=== PATIENT | female | born 1960 | race Caucasian/White ===

== ENCOUNTER → 2016-10-20 | Outpatient (CLI) | payer BC ==
[~2016-10-20] MED LIST: ALPR0.5T72 PO; ALPR1TAB7 PO; CYCL10TA9 PO; D50KC PO; ESCT10T PO; FLUC150T PO; FURO-125 PO; HYDR25CA PO; LISI10TA2 PO; MTF500T PO; Metformin Hcl PO; OXYC-202 PO; POTA10TA10 PO; ZOLP5TAB PO
--- OUTSIDE RECORDS SUMMARY | 2016-10-20 13:51 | XMS REPORT | Continuity of Care Document ---
Author Author [facility] Organization [facility] Address Unknown Phone Unavailable Care Team Providers Care Scarfing Machine Operator Name Role Phone YVETTE LOVE DO PCP Insurance Providers Payer Name Policy Number Subscriber Name Relationship [facility] [id number] Earle Acosta 01 Advance Directives Directive Response Recorded Date/Time Advance Directives No 03/11/10 11:00am Organ Donor Yes 03/11/10 11:00am Problems No known problems or medical conditions. Medications Medication Dose Route Sig Days/Qty Instructions Order Date Discontinued Date Status Metformin HCl (Glucophage) 1 Each PO TWICE A DAY 03/04/10 Active Alprazolam 1 Mg PO DAILY 03/04/10 Active Ergocalciferol 50,000 Unit PO WEEKLY 03/04/10 Active Escitalopram Oxalate 1 Each PO DAILY 03/04/10 Active Social History No social history. Hospital Discharge Instructions No hospital discharge instructions. Plan of Care No plan of care. Functional Status No functional status results. Allergies, Adverse Reactions, Alerts No known allergies. Immunizations No immunization records. Vital Signs No known vital signs results. Results No known relevant diagnostic tests, laboratory data and/or discharge summary. Procedures No known history of procedures. Encounters Encounter Location Date/Time Registered Clinic Via [facility] 02/25/15 8:00pm
--- NOTE | 2016-10-21 11:37 | Diagnostic Imaging Report ---
EXAM: Bilateral screening mammogram COMPARISON: The current study was also evaluated with a Computer Aided Detection (CAD) system. INDICATION: Screening. No current complaints stated on the questionnaire. COMPARISON: 09/03/2015. FINDINGS: A 1 cm nodule in the central posterior aspect of the right breast is seen more prominent compared to the prior study of 08/31/2015 and the right breast mammogram of 03/16/2015. The left breast demonstrates scattered fibroglandular densities with no focal mass. IMPRESSION: Slightly enlarged 1 cm lobulated mass in the central posterior aspect of the right breast is seen. Prior studies are suggested possibility of correlating lymph nodes. Ultrasound evaluation is recommended. BI-RADS 0. ACR BI-RADS Category 0: Incomplete. (Needs additional imaging evaluation). Result letter will be mailed to the patient. Note: At least 10% of breast cancer is not imaged by mammography. Dictated by: Dictated on workstation # [id number]
== END ==
LOC: RAD 13:49
PROVIDERS: ATTEND Obstetrics & Gynecology
DX: Z12.31 Encounter for screening mammogram for malignant neoplasm of breast (principal)
CPT/HCPCS: 77067

== ENCOUNTER → 2016-10-27 | Outpatient (CLI) | payer BC ==
--- OUTSIDE RECORDS SUMMARY | 2016-10-27 13:03 | XMS REPORT | Continuity of Care Document ---
Author Author [facility] Organization [facility] Address Unknown Phone Unavailable Care Team Providers Care Associate Professor Of Literacy Name Role Phone YVETTE LOVE DO PCP Insurance Providers Payer Name Policy Number Subscriber Name Relationship [facility] [id number] Earle Acosta 01 Advance Directives Directive Response [...] Encounters Encounter Location Date/Time Registered Clinic [facility] 02/25/15 8:00pm
--- NOTE | 2016-10-27 18:40 | Diagnostic Imaging Report ---
EXAMINATION: Ultrasound of the right breast. INDICATION: Abnormal mammogram. FINDINGS: The recent screening mammogram performed on 10/20/2016 noted a 1 cm lobulated nodule in the central portion of the right breast. The ultrasound examination in this area reveals that there is a 1.0 x 0.5 x 1.2 cm hypoechoic lesion with well-defined margins and through transmission. This appearance does suggest a simple cyst. There were no solid lesions to indicate malignancy. IMPRESSION: The lobulated density seen on mammogram is felt to represent a simple cyst. There is no evidence of malignancy. ACR BI-RADS Category 2: Benign findings. Dictated by: Dictated on workstation # [id number]
== END ==
LOC: RAD 13:01
PROVIDERS: ATTEND Obstetrics & Gynecology
DX: R92.8 Other abnormal and inconclusive findings on diagnostic imaging of breast (principal)
CPT/HCPCS: 76641

== ENCOUNTER → 2017-10-09 | Outpatient (CLI) | payer BC ==
[~2017-10-09] MED LIST changes: +CATHETER FLUSH 10 ML SYR IV PRN
[2017-10-09 08:05] VITALS: BP 124/72
--- NOTE | 2017-10-09 20:07 | STRESS TEST ---
DATE OF SERVICE: 10/09/2017 NUCLEAR MYOVIEW REPORT In summary, the patient was injected with 8.27 mCi of technetium-99 Myoview and the resting images were obtained. With peak stress level, a stress dose of 24.5 mCi of technetium-99 Myoview were injected and the stress images were acquired, the test was supervised by Dr. Moody, the resting and stress images were reviewed and compared in the short axis, horizontal long axis and vertical long axis views. Review of the images showed no significant ischemia or infarction on SPECT images. SSS is 0. TID value 1.02. On the gated images, the left ventricle appeared to be in normal size with normal contractility, calculated ejection fraction 66%. CONCLUSION: 1. No significant ischemia or infarct on SPECT images. 2. Normal left ventricular size with normal contractility, calculated ejection fraction 66%. Job ID: [id number] DocumentID: [id number] Dictated Date: 10/09/2017 12:10:50 Pattern Perforating Machine Operator Date: 10/09/2017 16:45:28 Dictated By: EUGENIA BRISENO MD
== END ==
LOC: CARD 06:49
PROVIDERS: ATTEND Nurse Practitioner Family
DX: R07.9 Chest pain, unspecified (principal)
CPT/HCPCS: 78452; 93017

== ENCOUNTER → 2017-10-23 | Outpatient (CLI) | payer BC ==
[~2017-10-23] MED LIST changes: -CATHETER FLUSH 10 ML SYR IV PRN
--- NOTE | 2017-10-23 14:35 | Diagnostic Imaging Report ---
INDICATION: Routine screening. COMPARISON: 10/20/2016 and 08/31/2015. TECHNIQUE: Screening digital mammography was performed bilaterally with a Computer Aided Detection (CAD) system. FINDINGS: Moderate parenchymal density and heterogeneity are again noted, limiting the sensitivity of mammography. The previously noted lobulated circumscribed mass in the right breast has decreased in size, consistent with diminution of a cyst. There is an area of increased density and questionable architectural distortion identified in the outer portion of the left breast at mid depth, best seen on the CC view image 32. No definite corresponding density on the MLO view is seen but additional views are recommended. The axillae are unremarkable. IMPRESSION: Left breast density. Additional views including spot compression CC, rolled CC, and 90 degree lateral view of the left breast would be recommended for further evaluation. ACR BI-RADS Category 0: Incomplete. (Needs additional imaging evaluation). Result letter will be mailed to the patient. Note: At least 10% of breast cancer is not imaged by mammography. Dictated by: Dictated on workstation # [id number]
== END ==
LOC: RAD 10:56
PROVIDERS: ATTEND Obstetrics & Gynecology
DX: Z12.31 Encounter for screening mammogram for malignant neoplasm of breast (principal)
CPT/HCPCS: 77067

== ENCOUNTER → 2017-10-27 | Outpatient (CLI) | payer BC ==
--- NOTE | 2017-10-27 19:00 | Diagnostic Imaging Report ---
INDICATION: Left breast density. The patient presents for additional views. Correlation is made with screening study from 10/23/2017 and prior mammogram from 10/20/2016. The current study was also evaluated with a Computer Aided Detection (CAD) system. FINDINGS: Patient returned and 3-D 90 degree lateral as well as spot compression CC and rolled CC views were obtained. Additional views demonstrate persistent area of increased density in the lateral portion of the left breast at mid depth. There is suggestion of architectural distortion at this location. No suspicious calcifications are seen. No discrete mass is identified. IMPRESSION: Questionable architectural distortion in the outer portion of left breast at mid depth approximately 7 cm from the nipple. Further evaluation with ultrasound is recommended. ACR BI-RADS Category 0: Incomplete. (Needs additional imaging evaluation). Result letter will be mailed to the patient. Note: At least 10% of breast cancer is not imaged by mammography. Dictated by: Dictated on workstation # [id number]
--- NOTE | 2017-10-27 19:02 | Diagnostic Imaging Report ---
INDICATION: Left breast density. The study was performed for further evaluation. COMPARISON: Correlation is made with the diagnostic mammogram from earlier the same day. EXAMINATION: Sonographic interrogation of the upper outer left breast was performed. FINDINGS: There are two small cysts at the 2 o'clock location, 7 cm from the nipple, largest is approximately 5 mm in size. No solid mass is detected. IMPRESSION: No suspicious sonographic abnormality is seen. Even so, there is questionable architectural distortion in the left breast, laterally, noted on mammography. Tissue sampling is recommended. This would be amenable to stereotactic approach. Results and recommendations were discussed with the patient at the time of the exam. ACR BI-RADS Category 4: Suspicious abnormality. Result letter will be mailed to the patient. Note: At least 10% of breast cancer is not imaged by mammography. Dictated by: Dictated on workstation # [id number]
== END ==
LOC: RAD 08:27
PROVIDERS: ATTEND Obstetrics & Gynecology
DX: R92.8 Other abnormal and inconclusive findings on diagnostic imaging of breast (principal)
CPT/HCPCS: 76642

== ENCOUNTER → 2017-11-06 | Outpatient (CLI) | payer BC ==
[~2017-11-06] VITALS: Ht 160 cm; Wt 100.7 kg
[~2017-11-06] MED LIST changes: +LIDOCAINE 1% INJ 20 ML (XYLOCAINE) VIAL INJ ONE; +LIDOCAINE 1% INJ 50 ML (XYLOCAINE) VIAL ONE
[2017-11-06 10:48] VITALS: BP 138/80
[2017-11-06 12:30] VITALS: BP 138/80
--- NOTE | 2017-11-06 12:57 | Diagnostic Imaging Report ---
INDICATION: Left breast density. Patient presents for stereotactic biopsy. Patient was brought to the stereotactic suite and positioned in a sitting upright position. The left breast was positioned in the CC approach. Tomographic imaging was performed. The area of density in the lateral portion of the left breast was stereotactically targeted. The skin of the left breast was prepped and draped in usual sterile fashion. A small amount of 1% lidocaine was utilized for local anesthesia. An 8-gauge stereotactic needle was advanced from a superior approach into the left breast. 4 core biopsies were obtained. Localizer clip was then deployed. Hemostasis was obtained using manual compression. Patient tolerated the procedure well. Followup mammogram does show the localizer clip in the upper-outer left breast at the area questionable architectural distortion. IMPRESSION: Successful stereotactic biopsy of the area of questionable architectural distortion in the upper-outer left breast, as described. Pathology results are currently pending. Dictated by: Dictated on workstation # [id number]
== END ==
LOC: RAD 10:44
PROVIDERS: ATTEND Obstetrics & Gynecology
DX: R92.8 Other abnormal and inconclusive findings on diagnostic imaging of breast (principal)
CPT/HCPCS: 19081

== ENCOUNTER → 2018-07-30 | Outpatient (CLI) | payer BC ==
[~2018-07-30] MED LIST changes: -LIDOCAINE 1% INJ 20 ML (XYLOCAINE) VIAL INJ ONE; -LIDOCAINE 1% INJ 50 ML (XYLOCAINE) VIAL ONE; -OXYC-202 PO; +OXYC1TAB12 PO
--- NOTE | 2018-07-30 13:32 | Diagnostic Imaging Report ---
INDICATION: Status post left breast biopsy in November 2017. Biopsy results demonstrated mild intraductal hyperplasia without atypia as well as fibrocystic changes. No malignancy was seen. This study is performed for followup. COMPARISON: 11/06/2017 and 10/27/2017. FINDINGS: Biopsy changes in the upper outer left breast at mid depth are seen with a marker clip in place. No mass or malignant-appearing microcalcifications are seen. The left axilla is unremarkable. IMPRESSION: Post biopsy changes. The patient should return in October for bilateral mammography. ACR BI-RADS Category 3: Probably benign findings. Result letter will be mailed to the patient. Note: At least 10% of breast cancer is not imaged by mammography. Dictated by: Dictated on workstation # [id number]
== END ==
LOC: RAD 12:42
PROVIDERS: ATTEND Obstetrics & Gynecology
DX: N63.20 Unspecified lump in the left breast, unspecified quadrant (principal)

== ENCOUNTER → 2018-10-22 | Outpatient (CLI) | payer BC ==
--- NOTE | 2018-10-22 10:49 | Diagnostic Imaging Report ---
INDICATION: Routine screening. Correlation is made with prior mammogram from 10/23/2017 and 10/20/2016. 2-D and 3-D bilateral screening mammography was performed with a Computer Aided Detection (CAD) system. FINDINGS: Both breasts are heterogeneously dense, limiting the sensitivity of mammography. Small nodular density in the posterior right breast has decreased in size since prior mammogram. There are benign calcifications in the right breast. Left breast contains a biopsy clip. Left breast parenchyma appears stable. Previous biopsy did not demonstrate malignancy. No suspicious microcalcifications are seen. Axillae are unremarkable. IMPRESSION: No mammographic features suspicious for malignancy are identified. ACR BI-RADS Category 2: Benign findings. Result letter will be mailed to the patient. Note: At least 10% of breast cancer is not imaged by mammography. Dictated by: Dictated on workstation # [id number]
== END ==
LOC: RAD 08:53
PROVIDERS: ATTEND Obstetrics & Gynecology
DX: Z12.31 Encounter for screening mammogram for malignant neoplasm of breast (principal)
CPT/HCPCS: 77067

== ENCOUNTER → 2020-02-28 | Outpatient (CLI) | payer BC ==
--- NOTE | 2020-02-28 15:07 | Diagnostic Imaging Report ---
EXAMINATION: Digital mammogram INDICATION: Bilateral screening The study was compared to the prior exams of 10/22/2018, 07/30/2018, 10/23/2017 and 10/20/2016. At this time there are no current complaints. The current study was also evaluated with a Computer Aided Detection (CAD) system. FINDINGS: There are scattered fibroglandular densities in both breasts which could obscure a lesion. Overall, there does not appear to have been any significant change when compared to the prior exam. No primary or secondary sign of malignancy is noted. The stereotactic clip in the left breast seen previously is again evident. IMPRESSION: There is no radiographic evidence for malignancy. ACR BI-RADS Category 1: Negative. Result letter will be mailed to the patient. Note: At least 10% of breast cancer is not imaged by mammography. Dictated by: Dictated on workstation # [id number]
== END ==
LOC: RAD 10:55
PROVIDERS: ATTEND Obstetrics & Gynecology
DX: Z12.31 Encounter for screening mammogram for malignant neoplasm of breast (principal); Z98.890 Other specified postprocedural states
CPT/HCPCS: 77063; 77067

== ENCOUNTER → 2021-03-15 | Outpatient (CLI) | payer BC ==
[~2021-03-15] MED LIST changes: -LISI10TA2 PO; +LISI10TA25 PO
--- NOTE | 2021-03-15 16:43 | Diagnostic Imaging Report ---
INDICATION: Routine screening. COMPARISON: 02/28/2020 and 10/22/2018. TECHNIQUE: 2D and 3D bilateral screening mammography was performed with CAD. FINDINGS: Both breasts are heterogeneously dense, limiting the sensitivity of mammography. The fibronodular parenchymal pattern appears similar to the prior exam. There is a biopsy clip in the lateral left breast at mid depth. No spiculated mass or malignant appearing microcalcifications are seen. The axillae are unremarkable. IMPRESSION: No mammographic features suspicious for malignancy are identified. ACR BI-RADS Category 2: Benign findings. Result letter will be mailed to the patient. Note: At least 10% of breast cancer is not imaged by mammography. Dictated by: Dictated on workstation # [id number]
== END ==
LOC: RAD 15:08
PROVIDERS: ATTEND Obstetrics & Gynecology
DX: Z12.31 Encounter for screening mammogram for malignant neoplasm of breast (principal)
CPT/HCPCS: 77063; 77067

== ENCOUNTER → 2022-04-19 | Outpatient (CLI) | payer BC ==
[~2022-04-19] MED LIST changes: +CYCL10TA25 PO; -CYCL10TA9 PO
--- NOTE | 2022-04-19 15:47 | Diagnostic Imaging Report ---
INDICATION: Routine screening. COMPARISON: 03/15/2021 and 02/28/2020. TECHNIQUE: 2D and 3D bilateral screening mammography was performed with CAD. FINDINGS: Both breasts are heterogeneously dense, limiting the sensitivity of mammography. Post biopsy changes in the lateral left breast are again noted. No spiculated mass or malignant-appearing microcalcifications are seen. The axillae are unremarkable. IMPRESSION: No mammographic features suspicious for malignancy are identified. ACR BI-RADS Category 2: Benign findings. Result letter will be mailed to the patient. Note: At least 10% of breast cancer is not imaged by mammography. Dictated by: Dictated on workstation # [id number]
== END ==
LOC: RAD 12:42
PROVIDERS: ATTEND Obstetrics & Gynecology
DX: Z12.31 Encounter for screening mammogram for malignant neoplasm of breast (principal)
CPT/HCPCS: 77063; 77067

== ENCOUNTER 2022-11-30 05:40 | Outpatient (CLI) | payer BC ==
[~2022-11-30] VITALS: Ht 162.6 cm; Wt 107.3 kg
[2022-11-30] MEDS ORDERED: CNC1KV IM (12:40)
[2022-11-30] MEDS ORDERED: ESTR1PAT73 TD (12:40)
== END 2022-11-30 13:01 | disposition home or self-care (01) ==
LOC: PREOP 05:40
PROVIDERS: ATTEND Surgery
DX: Z01.818 Encounter for other preprocedural examination (principal)

== ENCOUNTER 2022-12-13 08:33 | Day surgery (SDC) | payer BC ==
[~2022-12-13] VITALS: Ht 162.6 cm; Wt 107.3 kg
[~2022-12-13 08:33] MED LIST changes: +CNC1KV IM; +ESTR1PAT73 TD
[2022-12-13] MEDS ORDERED: LACTATED RINGERS 1,000 ML IV STA (08:39)
--- NOTE | 2022-12-13 08:44 | Progress Note-Pre Operative ---
Pre-Operative Progress Note Date H&P Reviewed: Dec 13, 2022 Time H&P Reviewed: 08:44 History & Physical: H&P Reviewed, Patient Examed, No changes noted Pre-Operative Diagnosis: family hx colon cancer SIERRA CRISOSTOMO DO Dec 13, 2022 08:44
[2022-12-13 08:55] VITALS: BP 124/84
[2022-12-13] MEDS ORDERED: PROPOFOL INJECTION 50 ML IV ONE (10:13)
--- NOTE | 2022-12-13 10:34 | Progress Note-Post Operative ---
Post-Operative Progess Note Surgeon (s)/Honey Producer (s) Surgeon SIERRA CRISOSTOMO DO Honey Producer: n/a Pre-Operative Diagnosis family hx colon cancer Post-Operative Diagnosis normal colon Procedure & Operative Findings Date of Procedure 12/13/22 Procedure Performed/Findings colonoscopy Anesthesia Type per rn practitioner Estimated Blood Loss Estimated blood loss (mL): none Specimens/Packing Specimens Removed none SIERRA CRISOSTOMO DO Dec 13, 2022 10:34
--- NOTE | 2022-12-13 10:35 | Discharge Inst-Simple/Standard ---
Discharge Inst-Standard Reconcile Patient Problems Problems Reviewed?: Yes Patient Instructions/Follow Up Plan of Care/Instructions/FU: Repeat colonoscopy in 5 years, to be seen sooner if any issues arise. Activity as Tolerated: Yes Discharge Diet: No Restrictions, Regular Diet SIERRA CRISOSTOMO DO Dec 13, 2022 10:35
--- NOTE | 2022-12-13 10:36 | Anesthesia-General Post-Op ---
MAC Patient Condition Mental Status/LOC: Same as Preop Cardiovascular: Satisfactory Nausea/Vomiting: Absent Respiratory: Satisfactory Pain: Controlled Complications: Absent Post Op Complications Complications None Follow Up Care/Instructions Patient Instructions None needed. Anesthesiology Discharge Order Discharge Order Patient is doing well, no complaints, stable vital signs, no apparent adverse anesthesia problems. No complications reported per nursing. CHRISTIANO LOMBARDI CRNA Dec 13, 2022 10:36
[2022-12-13 10:39] VITALS: BP 143/70
[2022-12-13 10:45] VITALS: BP 135/72
[2022-12-13 11:05] VITALS: BP 135/72
--- NOTE | 2022-12-13 15:05 | OPERATIVE REPORT ---
DATE OF SERVICE: 12/13/2022 PREOPERATIVE DIAGNOSIS: Family history of colon cancer. POSTOPERATIVE DIAGNOSIS: Normal colon. PROCEDURE: Colonoscopy. SURGEON: Sierra Ware DO ANESTHESIA: Per SCREED PERSON. ESTIMATED BLOOD LOSS: None. COMPLICATIONS: None. INDICATIONS: The patient is a 62-year-old female with family history of colon cancer. She understands risks and benefits of procedure and wished to proceed with procedure. Consent was signed in chart. DESCRIPTION OF PROCEDURE: The patient was taken to endoscopy suite, placed in left lateral recumbent position. Timeout was performed. Digital rectal exam was performed. No palpable polyps, masses or ulcerations. Scope was introduced into the rectum, advanced all the way to the cecum with minimal difficulty. Prep was adequate. Scope was slowly retracted back. No polyps, masses or ulcerations in the cecum. The ileum was intubated normal appearance. Scope was continuously retracted back. No polyps, masses or ulcerations within the ascending, transverse, descending and sigmoid colon. Once in the rectum, scope was inserted and retracted multiple times, noting no other pathology and then completely removed. Scope was unable to be retroflexed. Job ID: [id number] DocumentID: [id number] Dictated Date: 12/13/2022 10:34:10 Epic Cupid Analyst Date: 12/13/2022 15:03:00 Dictated By: SIERRA WARE DO [facility]
== END 2022-12-13 11:22 | disposition home or self-care (01) ==
LOC: ENDO 08:33
PROVIDERS: ATTEND Surgery
DX: Z12.11 Encounter for screening for malignant neoplasm of colon (principal); Z80.0 Family history of malignant neoplasm of digestive organs; E66.9 Obesity, unspecified; Z68.41 Body mass index [BMI] 40.0-44.9, adult

== ENCOUNTER → 2023-06-16 | Outpatient (CLI) | payer BC ==
--- NOTE | 2023-06-16 11:24 | Diagnostic Imaging Report ---
3-D bilateral screening mammogram with CAD. The current study was also evaluated with a Computer Aided Detection (CAD) system. This study was compared to the prior exam of 04/19/2022, 03/15/2021 and 02/28/2020. At this time there are no current complaints. There are scattered fibroglandular densities in both breasts which could obscure a lesion. On the MLO view of the left breast in the superior aspect of the breast approximately 8 cm from the nipple there is an 11 mm asymmetry. This finding is not as conspicuous on the craniocaudad view. This finding is in the region of the patient's prior biopsy and there is a stereotactic clip adjacent to this area. This finding may merely be secondary to scar formation. The possibility of underlying malignancy should still be considered. I would recommend that a compression view of this area be obtained in the MLO and CC projections as well as a true lateral view for further study. Ultrasound should also be performed. The right breast is unchanged. IMPRESSION: Additional mammographic views and ultrasound left breast would be recommended for further study. ACR BI-RADS Category 0: Incomplete. (Needs additional imaging evaluation). Result letter will be mailed to the patient. Note: At least 10% of breast cancer is not imaged by mammography. Dictated by: Dictated on workstation # [id number]
== END ==
LOC: RAD 10:03
PROVIDERS: ATTEND Obstetrics & Gynecology
DX: Z12.31 Encounter for screening mammogram for malignant neoplasm of breast (principal)
CPT/HCPCS: 77063; 77067

== ENCOUNTER → 2023-06-21 | Outpatient (CLI) | payer BC ==
--- NOTE | 2023-06-21 15:25 | Diagnostic Imaging Report ---
INDICATION: Left breast density. The patient presents for additional views. CORRELATION is made with screening study from 06/16/2023 as well as prior mammograms dating back to 2018. Unilateral left 2-D and 3-D diagnostic mammography was performed. This included spot compression CC and ML views as well as a 90 degree lateral view. Additional views show a persistent nodular density in the upper outer left breast just posterior to the patient's biopsy marker clip. No suspicious microcalcifications are seen. IMPRESSION: BI-RADS Category 0. Persistent density in the upper outer left breast 8 to 9 cm from the nipple after additional views. Further evaluation of this area with ultrasound is recommended and will be performed today. ACR BI-RADS Category 0: Incomplete. (Needs additional imaging evaluation). Result letter will be mailed to the patient. Note: At least 10% of breast cancer is not imaged by mammography. Dictated by: Dictated on workstation # [id number]
--- NOTE | 2023-06-21 15:32 | Diagnostic Imaging Report ---
INDICATION: Abnormal mammogram. Correlation is made with diagnostic mammogram earlier the same day and screening mammogram from 06/16/2023. Sonographic interrogation upper outer left breast does demonstrate a cyst at the 2 o'clock location, 8 cm from the nipple measuring 11 x 6 x 7 mm. This does correspond in size and location to the density noted mammographically. No solid masses are seen. IMPRESSION: Simple cyst upper outer left breast 2 o'clock location, 8 cm from the nipple, likely accounting for the mammographic density. The patient may return to routine annual screening mammography. ACR BI-RADS Category 2: Benign findings. Result letter will be mailed to the patient. Note: At least 10% of breast cancer is not imaged by mammography. BI-RADS Category 2 Dictated by: Dictated on workstation # [id number]
== END ==
LOC: RAD 12:33
PROVIDERS: ATTEND Obstetrics & Gynecology
DX: R92.8 Other abnormal and inconclusive findings on diagnostic imaging of breast (principal)

== ENCOUNTER → 2023-08-08 | Outpatient (CLI) | payer BC ==
--- NOTE | 2023-08-08 16:11 | Diagnostic Imaging Report ---
INDICATION: Postmenopausal state COMPARISON: None available FINDINGS: AP Spine L2-L4: [BMD (g/cm2): 1.397] [T-Score: 1.6] [Z-Score: 2.4] [BMD Previous: NA] [BMD % Change: NA] LT Hip Neck: [BMD (g/cm2): 0.851] [T-Score: -1.3] [Z-Score: -0.4] LT Hip Total: [BMD (g/cm2):0.917] [T-Score:-0.7] [Z-Score: -0.1] [BMD Previous: NA] [BMD % Change: NA] RT Hip Neck: [BMD (g/cm2):0.856] [T-Score:-1.3] [Z-Score:-0.4] RT Hip Total: [BMD (g/cm2):0.896] [T-score:-0.9] [Z-Score:-0.3] [BMD Previous:NA] [BMD % Change:NA] *Indicates significant change from prior examination based on 95% confidence level. World Health Organization criteria for BMD interpretation classify patients as Normal (T-score at or above -1.0), Osteopenic (T-score between -1.0 and -2.5) or Osteoporotic (T-score at or below -2.5). LIMITATIONS AND MODIFICATION: None. FRACTURE RISK (FRAX SCORE): The ten year probability of (%): Major Osteoporotic Fracture: [7.8] Hip Fracture: [0.7] IMPRESSION: 1. Osteopenia (Low bone mass). 2. Baseline examination. 3. See below National Osteoporosis Foundation guidelines on when to potentially initiate pharmacologic therapy. Based on the National Osteoporosis Foundation Guidelines, pharmacologic treatment should be initiated in any of the following, unless clinical conditions suggest otherwise: * Any patient with prior fragility fracture of the hip or vertebrae. A spine fracture indicates 5X risk for subsequent spine fracture and 2X risk for subsequent hip fracture. * Osteoporosis (T-score <-2.5). * Postmenopausal women and men age 50 and older with low bone mass/osteopenia (T-score between -1.0 and -2.5) by DXA and 10-year major osteoporotic fracture greater than 20% or a 10-year probability of hip fracture greater than 3%. These fracture risks are supplied above in the FRAX score, if applicable. * Clinician judgement and/or patient preferences may indicate treatment for people with 10-year fracture probabilities above or below these levels. Dictated by: Dictated on workstation # [id number]
== END ==
LOC: RAD 12:24
PROVIDERS: ATTEND Obstetrics & Gynecology
DX: Z13.820 Encounter for screening for osteoporosis (principal); M81.0 Age-related osteoporosis without current pathological fracture
CPT/HCPCS: 77080